=== PATIENT | female | born 1950 | race African-American/Black ===

== ENCOUNTER 2018-12-03 00:16 | Emergency (ER) | payer OTHER ==
[~2018-12-03] VITALS: Ht 165.1 cm; Wt 86.2 kg
[2018-12-03 02:09] LABS: HEMATOCRIT 36.8 % (37.0-47.0); HEMOGLOBIN 12.3 gm/dL (12.0-15.0); MCH 33.5 pg (26.0-34.0); MCHC 33.4 g/dL (28.0-37.0); MCV 100.4 fL (80.0-100.0); PLATELET COUNT 241 thou/uL (150-400); RBC 3.67 mil/uL (4.20-5.00); RDW 14.6 % (10.5-14.5); WBC 2.9 thou/uL (4.0-11.0)
[2018-12-03 02:22] LABS: CALCIUM 7.6 mg/dL (8.5-10.1); CREATININE 0.7 mg/dL (0.6-1.0); POTASSIUM 3.1 mmol/L (3.5-5.1)
[2018-12-03 02:29] LABS: ALBUMIN 3.4 g/dL (3.4-5.0); TOTAL BILIRUBIN 0.4 mg/dL (<0.1-1.0); TOTAL PROTEIN 8.6 g/dL (6.4-8.2)
[2018-12-03 02:41] LABS: ABSOLUTE NEUTROPHILS 1.8 thou/uL (1.4-8.2)
[2018-12-03] MEDS ORDERED: ONDANSETRON ODT8 MG PO (03:18)
[2018-12-03] MEDS ORDERED: PRILOSEC 20 MG20 MG PO (03:18)
[2018-12-03 03:37] LABS: URINE BILIRUBIN 2+ (Negative); URINE BLOOD TRACE (Negative); URINE CLARITY CLEAR; URINE COLOR YELLOW; URINE GLUCOSE-RANDOM* NEGATIVE (Negative); URINE KETONES 2+ (Negative); URINE LEUKOCYTES NEGATIVE (Negative); URINE NITRITE NEGATIVE (Negative); URINE PROTEIN (DIPSTICK) 1+ (Negative); URINE SPECIFIC GRAVITY >= 1.030 (1.005-1.035); URINE UROBILINOGEN 0.2 E.U./dl (0.2-1.0)
[2018-12-03 03:43] LABS: ICTOTEST (BILI CONFIRMATORY) Positive (Negative)
[2018-12-03 03:45] LABS: BACTERIA 1-9 Few /HPF (None Seen); CASTS None Seen /LPF (None Seen); CRYSTALS None Seen /LPF (None Seen); MUCUS 4-6 Moderate strn/LPF (None Seen); SQUAMOUS 4-10 Moderate /LPF (0-3); URINE RBC 0-2 Rare /HPF (0-2); URINE WBC 0-5 Rare /HPF (0-5)
[2018-12-03 04:08] VITALS: BP 126/71
--- NOTE | 2018-12-03 10:38 | EKG ---
[place] [address] [facility] [email or web address] [address] ELECTROCARDIOGRAM REPORT Name: FRANKLYN WHITTINGTON 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 : 1950 Requested By: Cruz Harris Order Number: [id number] MD: Giorgi Scott Measurements Intervals [place] Rate: 78 P: 34 [place]: 178 QRS: 5 QRSD: 124 T: -8 QT: 429 QTc: 489 Interpretive Statements Sinus rhythm Atrial premature complex Left ventricular hypertrophy Borderline T abnormalities, inferior leads Borderline prolonged QT interval No previous ECG available for comparison Electronically Signed On 12-03-2018 10:38:31 CDT by Giorgi Scott [email or web address] ��������������������������������������������� <ELECTRONICALLY SIGNED> ���������������������������������������� By: Giorgi Scott MD ��������������������������������������������� 12/03/18 [id number] [id number] Giorgi Scott MD /EDUARDO
== END 2018-12-03 04:14 | disposition home or self-care (01) ==
LOC: ER 00:16
PROVIDERS: Emergency Medicine
DX: K20.8 Other esophagitis (principal); D72.819 Decreased white blood cell count, unspecified; R11.2 Nausea with vomiting, unspecified; R19.7 Diarrhea, unspecified

== ENCOUNTER 2019-01-19 13:32 | Emergency (ER) | payer OTHER ==
[~2019-01-19] VITALS: Ht 162.6 cm; Wt 86.2 kg
[2019-01-19 15:11] LABS: HEMATOCRIT 28.7 % (37.0-47.0); HEMOGLOBIN 9.5 gm/dL (12.0-15.0); MCHC 33.2 g/dL (28.0-37.0); MCV 99.2 fL (80.0-100.0); PLATELET COUNT 147 thou/uL (150-400); RBC 2.89 mil/uL (4.20-5.00); RDW 16.4 % (10.5-14.5); WBC 3.6 thou/uL (4.0-11.0)
[2019-01-19 15:19] LABS: CALCIUM 7.8 mg/dL (8.5-10.1); CREATININE 0.8 mg/dL (0.6-1.0); POTASSIUM 3.3 mmol/L (3.5-5.1)
[2019-01-19 15:26] LABS: ALBUMIN 2.9 g/dL (3.4-5.0); TOTAL BILIRUBIN 0.2 mg/dL (<0.1-1.0); TOTAL PROTEIN 7.6 g/dL (6.4-8.2)
[2019-01-19 15:50] LABS: ABSOLUTE NEUTROPHILS 1.2 thou/uL (1.4-8.2); METAMYELOCYTES 1 %; PLATELET ESTIMATE NORMAL
[2019-01-19 16:10] VITALS: BP 109/59
== END 2019-01-19 16:00 | disposition home or self-care (01) ==
LOC: ER 13:32
PROVIDERS: Physician Assistant
DX: R05 Cough (principal); H66.91 Otitis media, unspecified, right ear

== ENCOUNTER 2019-07-16 11:53 | Emergency (ER) | payer OTHER ==
[~2019-07-16] VITALS: Ht 165.1 cm; Wt 81.7 kg
[~2019-07-16 11:53] MED LIST: AUGMENTIN 500-1 EACH PO; ONDANSETRON ODT8 MG PO; PRILOSEC 20 MG20 MG PO; PROMETH-CODEIN 65 ML PO
[2019-07-16] MEDS ORDERED: MUCINEX DM ER1 EAC1 PO (14:59)
[2019-07-16 15:21] VITALS: BP 124/71
== END 2019-07-16 15:21 | disposition home or self-care (01) ==
LOC: ER 11:53
DX: J06.9 Acute upper respiratory infection, unspecified (principal); I10 Essential (primary) hypertension; J44.9 Chronic obstructive pulmonary disease, unspecified; Z88.8 Allergy status to other drugs, medicaments and biological substances; Z86.718 Personal history of other venous thrombosis and embolism